=== PATIENT | male | born 1970 | race Two or more races ===

== ENCOUNTER → 2025-04-05 | Outpatient (CLI) | payer SELFPAY ==
[2025-04-06 11:57] LABS: Cocci Serology, IgM Negative (Negative)
[2025-04-07 13:48] LABS: Cocci Serology, IgG Negative (Negative)
== END | disposition home or self-care (01) ==
PROVIDERS: PCP Student in an Organized Health Care Education/Training Program; Referring Provider Student in an Organized Health Care Education/Training Program; Visit Provider Student in an Organized Health Care Education/Training Program
DX: R50.9 Fever, unspecified (principal)
CPT/HCPCS: 36415; 86331; 86635